=== PATIENT | male | born 1985 | race Two or more races ===

== ENCOUNTER 2016-05-10 09:42 | Emergency (ER) | payer OTHER ==
[2016-05-10 10:00] VITALS: BP 140/72
--- NOTE | 2016-05-10 11:13 | ER Document Report ---
HPI - HPI Pain Level: 5 Context: 31 yo male c/o left lower toothache x 2 days. + facial swelling. no fever. has dental appointment on Thursday Associated Symptoms: None Exacerbated by: Denies Relieved by: Denies - ROS Systems Reviewed and Negative: Yes All other systems reviewed and negative - DERM Skin Color: Normal Past Medical History - General Information source: Patient - Social History Smoking Status: Unknown if Ever Smoked Chew tobacco use (# tins/day): No Frequency of alcohol use: None Drug Abuse: None Lives with: Family Family History: Reviewed & Not Pertinent Patient has suicidal ideation: No Patient has homicidal ideation: No - Medical History Medical History: Negative Renal/ Medical History: Denies: Hx Peritoneal Dialysis Vertical Provider Document - CONSTITUTIONAL Agree With Documented VS: Yes Exam Limitations: No Limitations - INFECTION CONTROL TRAVEL OUTSIDE OF THE [place] IN LAST 30 DAYS: No - HEENT HEENT: Atraumatic, PERRLA Mouth Diagram: 1 - pain Notes: + swelling to left lower jaw - NECK Neck: Supple - RESPIRATORY Respiratory: Breath Sounds Normal, No Respiratory Distress O2 Sat by Pulse Oximetry: 99 - CARDIOVASCULAR Cardiovascular: Regular Rate, Regular Rhythm - MUSCULOSKELETAL/EXTREMETIES Musculoskeletal/Extremeties: MAEW - NEURO Level of Consciousness: Awake, Alert, Appropriate - DERM Integumentary: Warm, Dry Course - Vital Signs Vital signs: Temp Pulse Resp BP Pulse Ox 98.1 F 62 16 140/72 H 99 05/10/16 09:59 05/10/16 09:59 05/10/16 09:59 05/10/16 09:59 05/10/16 09:59 Discharge - Discharge Clinical Impression: Pain, dental Condition: Stable Disposition: HOME, SELF-CARE Instructions: Penicillin V K ([facility]), Toothache ([facility]), Oral Narcotic Medication ( [facility]) Additional Instructions: meds as prescribed follow up dental as scheduled Prescriptions: Hydrocodone/Acetaminophen [[place] 5-325 mg Tablet] 1 tab PO Q4H PRN #10 tablet PRN Reason: Penicillin V Potassium [Penicillin Vk 500 mg Tablet] 500 mg PO BID #20 tablet
== END 2016-05-10 11:22 | disposition home or self-care (01) ==
LOC: ER 09:42
DX: K08.89 Other specified disorders of teeth and supporting structures (principal); R22.0 Localized swelling, mass and lump, head
CPT/HCPCS: 99282